=== PATIENT | male | born 1995 | race Asian ===

== ENCOUNTER 2017-10-12 11:29 | Emergency (ER) | payer SELFPAY ==
[~2017-10-12] VITALS: Ht 172.7 cm; Wt 108.9 kg
[2017-10-12 14:18] VITALS: BP 137/84
== END 2017-10-12 14:18 | disposition home or self-care (01) ==
LOC: ED 11:29
DX: M79.644 Pain in right finger(s) (principal)
CPT/HCPCS: A4570

== ENCOUNTER 2018-07-27 18:26 | Emergency (ER) | payer SELFPAY, OTHER | END 2018-07-27 20:36 | disposition home or self-care (01) | LOC: ED 18:26 ==